=== PATIENT | male | born 1980 | race American Indian/Alaskan Native ===

== ENCOUNTER 2019-03-12 21:41 | Emergency (ER) | payer SELFPAY ==
--- NOTE | 2019-03-12 22:09 | Emergency Department Report ---
Blank Doc - Documentation Documentation: 39-year-old male that presents with chest pain and SOB. This initial assessment/diagnostic orders/clinical plan/treatment(s) is/are subject to change based on patient's health status, clinical progression and re- assessment by fellow clinical providers in the ED. Further treatment and workup at subsequent clinical providers discretion. Patient/guardians urged not to elope from the ED as their condition may be serious if not clinically assessed and managed. Initial orders include: 1- Patient sent to [facility] for further evaluation and treatment 2- labs 3- CXR 4- EKG
--- NOTE | 2019-03-12 23:10 | XRay Report ---
CHEST 2 VIEWS INDICATION / CLINICAL INFORMATION: Chest Pain. COMPARISON: None available. FINDINGS: SUPPORT DEVICES: None. HEART / MEDIASTINUM: Normal heart size. Normal aortic contour. Multiple calcified mediastinal and hil ar lymph nodes are present. LUNGS / PLEURA: No parenchymal consolidation or other acute abnormality. Scattered, small ossified gr anulomas are noted. No pleural fluid or pneumothorax. ADDITIONAL FINDINGS: No significant additional findings. IMPRESSION: 1. No acute cardiac pulmonary abnormality. Signer Name: Yrn Garcia MD Signed: 03/12/2019 11:05 PM Workstation Name: [id number]
[2019-03-12 23:12] LABS: BUN/Creatinine Ratio 10; Blood Urea Nitrogen 12 mg/dL (9-20); Calcium 9.2 mg/dL (8.4-10.2); Hemolysis Index 34
[2019-03-12 23:31] LABS: Hematocrit 41.6 % (35.5-45.6); Hemoglobin 14.2 gm/dl (11.8-15.2); Mean Corpuscular HGB Conc 34 % (32-34); Mean Corpuscular Volume 83 fl (84-94); Platelet Count 305 K/mm3 (140-440); Red Blood Count 5.01 M/mm3 (3.65-5.03); Red Cell Distribution Width 14.7 % (13.2-15.2)
[2019-03-12 23:35] LABS: Bilirubin,Urine SM (Negative); Blood,Urine NEG (Negative); Color,Urine Amber (Yellow); Hyaline Casts,Urine 18 /LPF; Mucus,Urine 3+ /HPF
[2019-03-12 23:57] LABS: Ictotest,Urine Negative (Negative)
[2019-03-13 01:50] LABS: RBC Morphology Normal; Total Cells Counted 100
--- NOTE | 2019-03-13 05:21 | Emergency Department Report ---
ED Chest Pain HPI - General Chief Complaint: Chest Pain Stated Complaint: DYANA/CHEST/ABDOMINAL TIGHT Time Seen by Provider: 03/12/19 22:08 Source: patient Mode of arrival: Ambulatory Limitations: No Limitations - History of Present Illness Severity scale (0 -10): 0 - Related Data Allergies Allergy/AdvReac Type Severity Reaction Status Date / Time No Known Allergies Allergy Unverified 03/12/19 22:13 ED Review of Systems ROS: Stated complaint: DYANA/CHEST/ABDOMINAL TIGHT Other details as noted in HPI ED Past Medical Hx - Past Medical History Previous Medical History?: No - Surgical History Past Surgical History?: Yes Additional Surgical History: LEFT ANKLE HARDWARE - Social History Smoking Status: Never Smoker Substance Use Type: Marijuana ED Physical Exam - General Limitations: No Limitations ED Course Vital Signs 03/12/19 03/13/19 03/13/19 21:55 03:07 05:00 Temperature 98.4 F Pulse Rate 78 76 Respiratory 16 21 17 Rate Blood Pressure 130/80 Blood Pressure 146/86 [Right] O2 Sat by Pulse 98 98 98 Oximetry ED Medical Decision Making - Lab Data Result diagrams: 03/12/19 22:22 03/12/19 22:22 Critical care attestation.: If time is entered above; I have spent that time in minutes in the direct care of this critically ill patient, excluding procedure time. ED Disposition Condition: Stable Referrals: PRIMARY CAREMD [Primary Care Provider] - 3-5 Days
[2019-03-13] MEDS ORDERED: LIDOCAINE VISCOUS 2% PO ONE (05:22)
[2019-03-13] MEDS ORDERED: ALUM-MAG HYDROX-SIMETH 200-200-20MG/5ML PO ONE (05:22)
[2019-03-13 05:28] VITALS: BP 111/77
== END 2019-03-13 05:46 | disposition home or self-care (01) ==
LOC: ED 21:41
DX: R07.89 Other chest pain (principal); R06.02 Shortness of breath; F12.10 Cannabis abuse, uncomplicated
CPT/HCPCS: 36415; 71046; 80048; 81001; 84484; 85007; 85025; 93005; 93010